=== PATIENT | female | born 1945 | race Caucasian/White ===

== ENCOUNTER 2017-06-13 13:32 | Emergency (ER) | payer OTHER ==
[~2017-06-13 13:32] MED LIST: ATENOLOL 100MG100 MG PO; CATAPRES0.2 MG PO; CELEXA20 MG PO; LISINOPRIL20 MG PO; MYRBETRIQ50 MG PO; NORVASC10 MG PO; OPANA ER40 M1 PO; OXYCODONE HCL E10 MG PO; SIMVASTATIN40 MG PO; TRAZODONE 150150 M1 PO; WELLBUTRIN 75 M75 M1 PO
== END 2017-06-13 13:52 | disposition left against medical advice (07) ==
LOC: ER 13:32
DX: Z53.21 Procedure and treatment not carried out due to patient leaving prior to being seen by health care provider (principal)

== ENCOUNTER 2020-01-28 11:17 | Emergency (ER) | payer OTHER ==
[~2020-01-28] VITALS: Ht 162.6 cm; Wt 97.5 kg
[2020-01-28 12:04] LABS: BASOPHILS 0.6 % (0.0-2.0); EOSINOPHILS 3.7 % (0.0-3.0); HEMOGLOBIN 12.7 gm/dL (12.0-15.0); LYMPHOCYTES 24.7 % (24.0-44.0); MCH 28.5 pg (26.0-34.0); MCHC 32.7 g/dL (28.0-37.0); MCV 87.1 fL (80.0-100.0); PLATELET COUNT 207 thou/uL (150-400); RBC 4.48 mil/uL (4.20-5.00); RDW 14.8 % (10.5-14.5); WBC 4.9 thou/uL (4.0-11.0)
[2020-01-28 12:09] LABS: CALCIUM 9.4 mg/dL (8.5-10.1); CREATININE 1.1 mg/dL (0.6-1.0); POTASSIUM 3.6 mmol/L (3.5-5.1)
[2020-01-28 12:15] LABS: ALBUMIN 3.9 g/dL (3.4-5.0); TOTAL BILIRUBIN 0.5 mg/dL (<0.1-1.0); TOTAL PROTEIN 7.5 g/dL (6.4-8.2)
[2020-01-28 12:56] LABS: URINE BILIRUBIN NEGATIVE (Negative); URINE BLOOD NEGATIVE (Negative); URINE CLARITY CLEAR; URINE COLOR YELLOW; URINE GLUCOSE-RANDOM* NEGATIVE (Negative); URINE KETONES NEGATIVE (Negative); URINE LEUKOCYTES-REFLEX NEGATIVE (Negative); URINE NITRITE-REFLEX NEGATIVE (Negative); URINE PROTEIN (DIPSTICK) NEGATIVE (Negative); URINE SPECIFIC GRAVITY 1.015 (1.005-1.035); URINE UROBILINOGEN 0.2 E.U./dl (0.2-1.0)
[2020-01-28] MEDS ORDERED: ALPRAZOLAM1 MG PO (13:02)
[2020-01-28] MEDS ORDERED: PHENERGAN 25 MG25 M1 PO (13:03)
[2020-01-28] MEDS ORDERED: NORCO 10-325 T1 EACH PO (13:04)
[2020-01-28 13:13] LABS: AMP/METHAMP Negative (Negative); BARBITURATES Negative (Negative); BENZODIAZEPINES POSITIVE (Negative); COCAINE Negative (Negative); METHADONE Negative (Negative); OPIATES POSITIVE (Negative); PCP Negative (Negative)
[2020-01-28 14:09] VITALS: BP 128/76
== END 2020-01-28 14:10 | disposition home or self-care (01) ==
LOC: ER 11:17
PROVIDERS: Physician Assistant
DX: S80.02XA Contusion of left knee, initial encounter (principal); S00.83XA Contusion of other part of head, initial encounter; Z79.899 Other long term (current) drug therapy; V89.2XXA Person injured in unspecified motor-vehicle accident, traffic, initial encounter; Y93.89 Activity, other specified; Y92.89 Other specified places as the place of occurrence of the external cause; Y99.8 Other external cause status